=== PATIENT | female | born 1940 | race Caucasian/White ===

== ENCOUNTER 2016-04-20 15:26 | Emergency (ER) | payer BC ==
[2016-04-20] MEDS ORDERED: TDaP 0.5 ML VIAL IM.VACC ONE (20:59)
== END 2016-04-20 21:20 | disposition home or self-care (01) ==
LOC: ER 15:26
DX: S51.801A Unspecified open wound of right forearm, initial encounter (principal); S00.83XA Contusion of other part of head, initial encounter; S80.01XA Contusion of right knee, initial encounter; W01.0XXA Fall on same level from slipping, tripping and stumbling without subsequent striking against object, initial encounter; Y92.009 Unspecified place in unspecified non-institutional (private) residence as the place of occurrence of the external cause; F17.210 Nicotine dependence, cigarettes, uncomplicated; Z23 Encounter for immunization
CPT/HCPCS: 36415; 70450; 71010; 80053; 81001; 83735; 85025; 85610; 85730; 87088; 90471; 93005